=== PATIENT | female | born 1975 | race Caucasian/White ===

== ENCOUNTER 2016-07-21 19:27 | Emergency (ER) | payer OTHER ==
--- NOTE | ~2016-07-21 | CR230 ---
[facility] A Service of [facility] RADIOLOGY TEXT RESULTS PATIENT: JOHAN MARCELINO LOCATION: SED : 77 UNIT #: [id number] AGE: [address]: Nneka Lopez APRN SEX: F ORDER DR: [id number] [address] [address] [id number] E MR#: [id number] Acc #: [id number] NAME: JOHAN MARCELINO : 1975 SEX: F STUDY DATE/TIME: 07/21/2016 20:15 UNIT: SED ROOM: STUDY DESCRIPTION: CR Shoulder Min 2 View Rt Attending Physician: Nneka Lopez A.P.R.N. Ordering Physician: Nneka Lopez A.P.R.N. Primary Care Physician: Tammy Guerrero A.P.R.N. MEDICAL IMAGING REPORT This report is preliminary unless electronic signature is present. EXAM Right shoulder series dated 07/21/2016 COMPARISON None HISTORY Right shoulder pain which radiates to the neck for the last month. It is worse in the last 2 days. FINDINGS 3 views of the right shoulder were obtained. AP view with internal and external rotation of the shoulder girdle shows satisfactory relationship of the humeral head and glenoid fossa. The joint space is normal. There is no identifiable fracture or dislocation or bony destructive process about the shoulder girdle anatomy. The acromioclavicular joint is normal. There is no radiopaque foreign body in the region. IMPRESSION Normal shoulder. Dictated by... Yady Valdez M.D. THIS IS AN ELECTRONICALLY VERIFIED REPORT Yady Valdez M.D. at 07/22/2016 1:51 PM CPR/clement TD: 07/22/2016 07:59 JOB #: [id number] [facility] A Service of [facility] RADIOLOGY TEXT RESULTS PATIENT: JOHAN MARCELINO LOCATION: SED : [birth year] UNIT #: [id number] AGE: [address]: Nneka Lopez APRN SEX: F ORDER DR: MEDICAL IMAGING REPORT Page 1 of 1
--- NOTE | ~2016-07-21 | CR58 ---
[facility] A Service of [facility] & [facility] RADIOLOGY TEXT RESULTS PATIENT: JOHAN MARCELINO LOCATION: SED : [birth year] UNIT #: [id number] AGE: [address]: Nneka Lopez APRN SEX: F ORDER DR: [id number] [place] [id number] E MR#: [id number] Acc #: [id number] NAME: JOHAN MARCELINO : 1975 SEX: F STUDY DATE/TIME: 07/21/2016 20:15 UNIT: SED ROOM: STUDY DESCRIPTION: CR Cervical Spine 2 or 3 Views Attending Physician: Nneka Lopez A.P.R.N. Ordering Physician: Nneka Lopez A.P.R.N. Primary Care Physician: Tammy Guerrero A.P.R.N. MEDICAL IMAGING REPORT This report is preliminary unless electronic signature is present. EXAM Cervical spine series dated 07/21/2016 COMPARISON Thoracic spine series dated 07/21/2016. HISTORY Neck pain. FINDINGS 3 views of the cervical spine show satisfactory preservation of the cervical lordosis. The cervical soft tissues are normal. All anterior and posterior elements in the cervical area are anatomically normal without identifiable fracture, dislocation, malignant lytic or sclerotic change, or arthritis. There is no congenital defect apparent. IMPRESSION Normal cervical spine. Dictated by... Yady Valdez M.D. THIS IS AN ELECTRONICALLY VERIFIED REPORT Yady Valdez M.D. at 07/22/2016 1:50 PM CPR/mjs TD: 07/22/2016 07:23 JOB #: [id number] MEDICAL IMAGING REPORT Page 1 of 1
--- NOTE | ~2016-07-21 | CR243 ---
[facility] A Service of [facility] & [facility] RADIOLOGY TEXT RESULTS PATIENT: JOHAN MARCELINO LOCATION: SED : [birth year] UNIT #: [id number] AGE: [address]: Nneka Lopez APRN SEX: F ORDER DR: [id number] [address] [address] [id number] E MR#: [id number] Acc #: [id number] NAME: JOHAN MARCELINO : 1975 SEX: F STUDY DATE/TIME: 07/21/2016 20:15 UNIT: SED ROOM: STUDY DESCRIPTION: CR Thoracic Spine 3 Views Attending Physician: Nneka Lopez A.P.R.N. Ordering Physician: Nneka Lopez A.P.R.N. Primary Care Physician: Tammy Guerrero A.P.R.N. MEDICAL IMAGING REPORT This report is preliminary unless electronic signature is present. EXAM Thoracic spine series dated 07/21/2016. COMPARISON Thoracic spine series dated 05/25/2013. HISTORY Right shoulder pain which radiates to the neck for 1 month. It is worse in the last 2 days. FINDINGS 3 views of the thoracic spine were obtained. No acute displaced fracture or subluxation. There is anterior chronic wedge compression deformity of 1 of the lower thoracic vertebral bodies based on the lateral view. It is probably T10 or T11 vertebral body. It is best seen on the lateral view. It is probably chronic without any obvious fracture lines or displaced fragments. Pedicles and spinous process are intact. Dictated by... Yady Valdez M.D. THIS IS AN ELECTRONICALLY VERIFIED REPORT Yady Valdez M.D. at 07/22/2016 1:50 PM CPR/cmm TD: 07/22/2016 07:21 JOB #: [id number] MEDICAL IMAGING REPORT Page 1 of 1
[~2016-07-21 19:27] MED LIST: AMBIEN10 MG PO; ESGIC CAPSULE1 CAP PO; FLEXERIL10 MG PO; IBUPROFEN PO; IMITREX PO; NO MEDICATIONS; PERCOCET5/325 PO; PHENERGAN PO; PHENERGAN25 M1; TYLOX1 CAP 5/50 PO; ZOLOFT PO; [UNRECOGNIZED DRUG - REMARK]
== END 2016-07-21 21:51 | disposition home or self-care (01) ==
LOC: SED 19:27
DX: M43.6 Torticollis (principal)
CPT/HCPCS: 72040; 72072; 73030; 96372; 99283; 99284; J1885

== ENCOUNTER 2016-10-24 18:04 | Emergency (ER) | payer OTHER ==
[2016-10-24] MEDS ORDERED: NAPROXEN PO (18:12)
[2016-10-24] MEDS ORDERED: TOPAMAX PO (18:12)
[2016-10-24] MEDS ORDERED: ROBAXIN500 MG PO (19:10)
[2016-10-24] MEDS ORDERED: MOTRIN400 MG PO (19:11)
== END 2016-10-24 19:18 | disposition home or self-care (01) ==
LOC: SED 18:04
DX: S46.911A Strain of unspecified muscle, fascia and tendon at shoulder and upper arm level, right arm, initial encounter (principal); Z79.899 Other long term (current) drug therapy; X58.XXXA Exposure to other specified factors, initial encounter; Y92.009 Unspecified place in unspecified non-institutional (private) residence as the place of occurrence of the external cause
CPT/HCPCS: 96372; 99283; J1885